=== PATIENT | male | born 1960 | race Caucasian/White ===

== ENCOUNTER 2016-04-09 07:08 | Emergency (ER) | payer OTHER ==
--- NOTE | 2016-04-09 08:21 | DIAGNOSTIC IMAGING REPORT ---
PROCEDURE: XR LUMBAR SPINE 2 OR 3 VIEWS INDICATION: Lower back pain, no known injury TECHNIQUE: Three views of the lumbar spine COMPARISON: 09/20/2013 FINDINGS: Five lumbar-type vertebral bodies are present. Normal vertebral body height without fracture. Subtle S-shaped scoliosis. Trace retrolisthesis L2-3. Mildly decreased disc height loss L2-3. The other disc spaces are fairly well maintained. Small degenerative end plate osteophytes L2-3, stable compared to the previous study. The visible osseous pelvis and bowel gas pattern are normal. Mild retained stool. IMPRESSION: 1. Intact lumbar spine. 2. Mild, stable chronic degenerative change at the L2-3 level.
--- NOTE | 2016-04-09 09:16 | ED CLINICAL REPORT ---
Clinical Report - Physicians/Mid Levels [facility] [address] [place] [address] 04/09/2016 7:11 Patient: LEANNE SIDDIQUI Time Seen: 07:42. Arrived- By private vehicle. Historian- patient. HISTORY OF PRESENT ILLNESS Chief Complaint: BACK PAIN. It is described as being moderate in degree and in the area of the right upper lumbar spine and right mid lumbar spine. The quality is noted to be aching and "pain". Quality not similar to prior episodes. No radiation. Onset- about 9 days ago and it is still present. It was abrupt in onset and has been constant and waxing/waning. No bladder dysfunction, bowel dysfunction or motor loss. Patient notes the possibility of an injury. Mechanism of injury- he was lifting (9 days ago he was lifting many heavy boxes). Similar symptoms previously: Diagnosis: sciatica and degenerative disc disease. ( he says that today's symptoms are different than his prior). REVIEW OF SYSTEMS No urgency, frequency or hesitancy of urination or urinary incontinence. No chills, fever, sweats, calf pain or chest pain. No cough, difficulty breathing, pedal edema, abdominal pain or constipation. No diarrhea, nausea, vomiting or painful urination. All systems otherwise negative, except as recorded above. PAST HISTORY PCP - Kimberly. SOCIAL HISTORY Current every day light tobacco smoker (cigarette)- less than 1/2 a pack per day. Regular alcohol use; consumes two beers a day. No drug use. FAMILY HISTORY No significant family medical history. ADDITIONAL NOTES The nursing notes have been reviewed. PHYSICAL EXAM Vital Signs: 04/09/2016 07:27 BP: 117/82. HR: 109. RR: 18. O2 saturation: 98%. Temp: 98.5 F. Have been reviewed. Appearance: Alert. Eyes: Pupils equal, round and reactive to light. ENT: Pharynx normal. Neck: Painless ROM. CVS: Heart sounds normal. Pulses normal. Respiratory: No respiratory distress. Breath sounds normal. Abdomen: No visible injury. Soft and nontender. Bowel sounds normal. No organomegaly. No mass. Back: Moderate muscle spasm of the left posterior back. Skin: Skin warm and dry. Normal skin color. Normal skin turgor. Extremities: Extremities exhibit normal ROM. Extremities nontender. No calf tenderness. Neuro: No motor deficit. No sensory deficit. LABS, X-RAYS, AND EKG LS-Spine X-rays: (IMPRESSION: 1. Intact lumbar spine. 2. Mild, stable chronic degenerative change at the L2-3 level.). The X-rays were interpreted by the radiologist and contemporaneously by me. Laboratory Tests: UA-Culture if indicated: (JADYN: 04/09/2016 08:30) ( MsgRcvd 04/09/2016 09:01) Final results Test Result Flag Units (Reference) URINE COLOR YELLOW URINE APPEARANCE CLEAR URINE GLUCOSE NEGATIVE (NEGATIVE) URINE BILIRUBIN NEGATIVE (NEGATIVE) URINE KETONE NEGATIVE (NEGATIVE) URINE SPECIFIC GRAVITY 1.020 (1.010-1.030) URINE PH 5.5 (5.0-8.0) URINE PROTEIN NEGATIVE (NEGATIVE) URINE UROBILINOGEN 0.2 EU/dL (0.2-1.0) URINE NITRITE NEGATIVE (NEGATIVE) URINE BLOOD NEGATIVE (NEGATIVE) URINE LEUK ESTERASE NEGATIVE (NEGATIVE) URINE RBC NONE SEEN rbc/hpf (0-1) URINE WBC NONE SEEN wbc/hpf (0-1) URINE EPITHELIAL CELLS 1-3 EPI/hpf (0-5) URINE BACTERIA NONE SEEN (NONE SEEN) URINE COMMENT CULT NOT INDICATED URINE CULTURES ARE SET-UP BASED ON THE FOLLOWING CRITERIA:POSITIVE NITRITEPOSITIVE LEUKOCYTE ESTERASEGREATER THAN 10 WHITE BLOOD CELLSMODERATE (2+) OR GREATER BACTERIA . PROGRESS AND PROCEDURES Course of Care: Patient is stable. Patient/family counseled. Old medical records reviewed. Disposition: Discharged. Condition: stable. CLINICAL IMPRESSION Muscle strain of the low back. 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 INSTRUCTIONS Apply ice for 20 minutes four times a day until better. Don't apply ice directly to skin and don't use while asleep. No driving or operating machinery while taking medication. No lifting greater than 5 lbs, no bending or stooping or no prolonged sitting until well. Warnings: GENERAL WARNINGS: Return or contact your physician immediately if your condition worsens or changes unexpectedly, if not improving as expected, or if other problems arise. Prescription Medications: Flexeril 10 mg: Take 1 orally every 8 hours as needed for muscle spasm. Dispense twenty (20). No refills. Substitution is permissible. OTC Medications: Motrin (available over the counter): take according to label instructions. Understanding of the discharge instructions verbalized by patient. Follow-up with: [facility], [facility], , [address] [place] [address] Follow up in five days if not better. (Electronically signed by Rk Best MD 04/12/2016 9:20)
--- NOTE | 2016-04-09 09:16 | ED NURSING NOTES ---
Clinical Report - Nurses [facility] [address] [place] [address] 04/09/2016 7:11 Patient: LEANNE SIDDIQUI TRIAGE Triage time 07:Apr 09 2016. Acuity: LEVEL 4. Chief Complaint: BACK PAIN. RENATO COMA SCORE: [place] Coma Scale: 15- eyes open spontaneously (4); best verbal response- oriented x 4 (5); best motor response- obeys commands (6). --07:32 Spencer Rizvi R.N. 07:26 04/09/16. BP: 117/82. HR: 109. RR: 18. O2 saturation: 98%. Temp: 98.5 F. Pain level now 5/10. --07:32 Spencer Rizvi R.N. Weight: 63.5 kg stated. Height/Length: 70 inches Per Patient. BMI: 20.1. --07:32 Spencer Rizvi R.N. Medications None. --07:30 Spencer Rizvi R.N. Allergies Tetanus Toxoids. --07:30 Spencer Rizvi R.N. History Arrived by private vehicle. Historian: patient. Accompanied by family. Primary physician (Kimberly). Onset. (around a weeks ago). He has had moderate trouble walking. The patient has been unable to walk. History of recent trauma- (Was lifting junk to go to the [place] [place]. Had to lift a Generator by himself.). Occurred at home. No numbness, weakness, tingling, fever or extremity pain. 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 SOCIAL HX: Light tobacco smoker (cigarette)- less than 1/2 a pack per day. Alcohol use; consumes two beers a day. No drug use. SELF HARM ASSESSMENT: A self harm assessment was performed. The patient answered "no" to the question "Have you recently felt down, depressed, or hopeless?" and "Do you have thoughts of harming or killing yourself?". FALL RISK ASSESSMENT: Fall risk assessment completed. No fall risk identified. NUTRITIONAL RISK ASSESSMENT: The nutritional risk assessment revealed no deficiencies. FUNCTIONAL ASSESSMENT: Functional assessment: no impairments noted. LEARNING NEEDS ASSESSMENT: The learning needs assessment revealed no barriers. ABUSE ASSESSMENT: Abuse assessment: (yes) The patient was asked "Do you feel safe in your home?". SKIN INTEGRITY ASSESSMENT: Skin integrity risk assessment completed. No skin integrity risk identified. --07:32 Spencer Rizvi R.N. PROBLEMS: Back Pain. Sciatica. Tetanus Status. Immunizations. --07:30 Spencer Rizvi R.N. ADDITIONAL SURGERIES: Tonsillectomy. --07:30 Spencer Rizvi R.N. Interventions ID and allergy band on patient. --07:32 Spencer Rizvi R.N. PHYSICAL ASSESSMENT Ambulatory to room. GENERAL / NEURO / PSYCH: Alert. Oriented X 4. Appears in no acute distress. RESPIRATORY: Respirations not labored. Chest nontender. Breath sounds within normal limits. CVS: Normal heart rate and rhythm. Capillary refill less than 2 seconds. GI / : Abdomen soft and nontender. Bowel sounds within normal limits. EXTREMITIES: Sensation intact in extremities. ROM of extremities within normal limits. BACK: ( Pain in lower back it started on left side now radiates entire lower back. Currently having pains that shoot into left side especially if he coughs.). --07:33 Spencer Rizvi R.N. NURSING PROGRESS NOTES Pulse oximeter and NIBP monitor placed on patient. Head of bed elevated (45). Reassurance given. Call light placed in reach. Side rails up x 1. Bed placed in lowest position. Brakes of bed on. --07:33 Spencer Rizvi R.N. 08:30. Patient ID band checked for patient name and birthdate urine collected with return of yellow-colored clear urine; odor is normal; sample sent to lab for urinalysis and culture. Specimen labeled in the presence of the patient. --08:44 [facility]. DISPOSITION / DISCHARGE Condition at departure: improved. No learning barriers present. Discharge instructions provided and reviewed with the patient. Reviewed warnings. Reviewed medication(s). Treatments reviewed. Reviewed referrals. Patient verbalized understanding. Written instructions provided in Chinese. The patient was discharged home and accompanied by level vial sealer. He left the Emergency Department ambulatory and via private vehicle. Bulker driving. --09:32 Spencer Rizvi R.N. 09:31 04/09/16. BP: 126/80. HR: 90. RR: 20. O2 saturation: 98%. Temp: 98.5 F. Pain level now 5/10. --:32 Spencer Rizvi R.N. Departure time: 09:32 Apr 09 2016. --:32 Spencer Rizvi R.N. Locked/Released at 04/09/2016 19:11 by Spencer Rizvi R.N.
--- NOTE | 2016-04-09 09:16 | ED CLINICAL REPORT ---
Clinical Report - Physicians/Mid Levels [facility] [address] [place] [address] 04/09/2016 7:11 Patient: LEANNE SIDDIQUI Time Seen: 07:42. Arrived- By private vehicle. Historian- patient. HISTORY OF PRESENT ILLNESS Chief Complaint: BACK PAIN. It is described as being moderate in degree and in the area of the right upper lumbar spine and right mid lumbar spine. The quality is noted to be aching and "pain". Quality not similar to prior episodes. No radiation. Onset- about 9 days ago and it is still present. It was abrupt in onset and has been constant and waxing/waning. No bladder dysfunction, bowel dysfunction or motor loss. Patient notes the possibility of an injury. Mechanism of injury- he was lifting (9 days ago he was lifting many heavy boxes). Similar symptoms previously: Diagnosis: sciatica and degenerative disc disease. ( he says that today's symptoms are different than his prior). REVIEW OF SYSTEMS No urgency, frequency or hesitancy of urination or urinary incontinence. No chills, fever, sweats, calf pain or chest pain. No cough, difficulty breathing, pedal edema, abdominal pain or constipation. No diarrhea, nausea, vomiting or painful urination. All systems otherwise negative, except as recorded above. PAST HISTORY PCP - Kimberly. SOCIAL HISTORY Current every day light tobacco smoker (cigarette)- less than 1/2 a pack per day. Regular alcohol use; consumes two beers a day. No drug use. FAMILY HISTORY No significant family medical history. ADDITIONAL NOTES The nursing notes have been reviewed. PHYSICAL EXAM Vital Signs: 04/09/2016 07:27 BP: 117/82. HR: 109. RR: 18. O2 saturation: 98%. Temp: 98.5 F. Have been reviewed. Appearance: Alert. Eyes: Pupils equal, round and reactive to light. ENT: Pharynx normal. Neck: Painless ROM. CVS: Heart sounds normal. Pulses normal. Respiratory: No respiratory distress. Breath sounds normal. Abdomen: No visible injury. Soft and nontender. Bowel sounds normal. No organomegaly. No mass. Back: Moderate muscle spasm of the left posterior back. Skin: Skin warm and dry. Normal skin color. Normal skin turgor. Extremities: Extremities exhibit normal ROM. Extremities nontender. No calf tenderness. Neuro: No motor deficit. No sensory deficit. LABS, X-RAYS, AND EKG LS-Spine X-rays: (IMPRESSION: 1. Intact lumbar spine. 2. Mild, stable chronic degenerative change at the L2-3 level.). The X-rays were interpreted by the radiologist and contemporaneously by me. Laboratory Tests: UA-Culture if indicated: (JADYN: 04/09/2016 08:30) ( MsgRcvd 04/09/2016 09:01) Final results Test Result Flag Units (Reference) URINE COLOR YELLOW URINE APPEARANCE CLEAR URINE GLUCOSE NEGATIVE (NEGATIVE) URINE BILIRUBIN NEGATIVE (NEGATIVE) URINE KETONE NEGATIVE (NEGATIVE) URINE SPECIFIC GRAVITY 1.020 (1.010-1.030) URINE PH 5.5 (5.0-8.0) URINE PROTEIN NEGATIVE (NEGATIVE) URINE UROBILINOGEN 0.2 EU/dL (0.2-1.0) URINE NITRITE NEGATIVE (NEGATIVE) URINE BLOOD NEGATIVE (NEGATIVE) URINE LEUK ESTERASE NEGATIVE (NEGATIVE) URINE RBC NONE SEEN rbc/hpf (0-1) URINE WBC NONE SEEN wbc/hpf (0-1) URINE EPITHELIAL CELLS 1-3 EPI/hpf (0-5) URINE BACTERIA NONE SEEN (NONE SEEN) URINE COMMENT CULT NOT INDICATED URINE CULTURES ARE SET-UP BASED ON THE FOLLOWING CRITERIA:POSITIVE NITRITEPOSITIVE LEUKOCYTE ESTERASEGREATER THAN 10 WHITE BLOOD CELLSMODERATE (2+) OR GREATER BACTERIA . PROGRESS AND PROCEDURES Course of Care: Patient is stable. Patient/family counseled. Old medical records reviewed. Disposition: Discharged. Condition: stable. CLINICAL IMPRESSION Muscle strain of the low back. 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 INSTRUCTIONS Apply ice for 20 minutes four times a day until better. Don't apply ice directly to skin and don't use while asleep. No driving or operating machinery while taking medication. No lifting greater than 5 lbs, no bending or stooping or no prolonged sitting until well. Warnings: GENERAL WARNINGS: Return or contact your physician immediately if your condition worsens or changes unexpectedly, if not improving as expected, or if other problems arise. Prescription Medications: Flexeril 10 mg: Take 1 orally every 8 hours as needed for muscle spasm. Dispense twenty (20). No refills. Substitution is permissible. OTC Medications: Motrin (available over the counter): take according to label instructions. Understanding of the discharge instructions verbalized by patient. Follow-up with: [facility], [facility], , [address] [place] [address] Follow up in five days if not better. (Electronically signed by Rk Best MD 04/12/2016 9:20)
--- NOTE | 2016-04-09 09:16 | ED NURSING NOTES ---
Clinical Report - Nurses [facility] [address] [place] [address] 04/09/2016 7:11 Patient: LEANNE SIDDIQUI TRIAGE Triage time 07:Apr 09 2016. Acuity: LEVEL 4. Chief Complaint: BACK PAIN. RENATO COMA SCORE: [place] Coma Scale: 15- eyes open spontaneously (4); best verbal response- oriented x 4 (5); best motor response- obeys commands (6). --07:32 Spencer Rizvi R.N. 07:26 04/09/16. BP: 117/82. HR: 109. RR: 18. O2 saturation: 98%. Temp: 98.5 F. Pain level now 5/10. --07:32 Spencer Rizvi R.N. Weight: 63.5 kg stated. Height/Length: 70 inches Per Patient. BMI: 20.1. --07:32 Spencer Rizvi R.N. Medications None. --07:30 Spencer Rizvi R.N. Allergies Tetanus Toxoids. --07:30 Spencer Rizvi R.N. History Arrived by private vehicle. Historian: patient. Accompanied by family. Primary physician (Kimberly). Onset. (around a weeks ago). He has had moderate trouble walking. The patient has been unable to walk. History of recent trauma- (Was lifting junk to go to the [place]. Had to lift a Generator by himself.). Occurred at home. No numbness, weakness, tingling, fever or extremity pain. 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 SOCIAL HX: Light tobacco smoker (cigarette)- less than 1/2 a pack per day. Alcohol use; consumes two beers a day. No drug use. SELF HARM ASSESSMENT: A self harm assessment was performed. The patient answered "no" to the question "Have you recently felt down, depressed, or hopeless?" and "Do you have thoughts of harming or killing yourself?". FALL RISK ASSESSMENT: Fall risk assessment completed. No fall risk identified. NUTRITIONAL RISK ASSESSMENT: The nutritional risk assessment revealed no deficiencies. FUNCTIONAL ASSESSMENT: Functional assessment: no impairments noted. LEARNING NEEDS ASSESSMENT: The learning needs assessment revealed no barriers. ABUSE ASSESSMENT: Abuse assessment: (yes) The patient was asked "Do you feel safe in your home?". SKIN INTEGRITY ASSESSMENT: Skin integrity risk assessment completed. No skin integrity risk identified. --07:32 Spencer Rizvi R.N. PROBLEMS: Back Pain. Sciatica. Tetanus Status. Immunizations. --07:30 Spencer Rizvi R.N. ADDITIONAL SURGERIES: Tonsillectomy. --07:30 Spencer Rizvi R.N. Interventions ID and allergy band on patient. --07:32 Spencer Rizvi R.N. PHYSICAL ASSESSMENT Ambulatory to room. GENERAL / NEURO / PSYCH: Alert. Oriented X 4. Appears in no acute distress. RESPIRATORY: Respirations not labored. Chest nontender. Breath sounds within normal limits. CVS: Normal heart rate and rhythm. Capillary refill less than 2 seconds. GI / : Abdomen soft and nontender. Bowel sounds within normal limits. EXTREMITIES: Sensation intact in extremities. ROM of extremities within normal limits. BACK: ( Pain in lower back it started on left side now radiates entire lower back. Currently having pains that shoot into left side especially if he coughs.). --07:33 Spencer Rizvi R.N. NURSING PROGRESS NOTES Pulse oximeter and NIBP monitor placed on patient. Head of bed elevated (45). Reassurance given. Call light placed in reach. Side rails up x 1. Bed placed in lowest position. Brakes of bed on. --07:33 Spencer Rizvi R.N. 08:30. Patient ID band checked for patient name and birthdate urine collected with return of yellow-colored clear urine; odor is normal; sample sent to lab for urinalysis and culture. Specimen labeled in the presence of the patient. --08:44 [facility]. DISPOSITION / DISCHARGE Condition at departure: improved. No learning barriers present. Discharge instructions provided and reviewed with the patient. Reviewed warnings. Reviewed medication(s). Treatments reviewed. Reviewed referrals. Patient verbalized understanding. Written instructions provided in Slovak. The patient was discharged home and accompanied by business lawyer. He left the Emergency Department ambulatory and via private vehicle. Children'[employer] Program Coordinator driving. --09:32 Spencer Rizvi R.N. 09:31 04/09/16. BP: 126/80. HR: 90. RR: 20. O2 saturation: 98%. Temp: 98.5 F. Pain level now 5/10. --:32 Spencer Rizvi R.N. Departure time: 09:32 Apr 09 2016. --:32 Spencer Rizvi R.N. Locked/Released at 04/09/2016 19:11 by Spencer Rizvi R.N.
--- NOTE | 2016-04-09 09:17 | ED ORDER SUMMARY ---
..... Patient: LEANNE SIDDIQUI OrderSheet [facility] VisitID: [id number] [address] [place] [address] 55y, M Registration Date/Time: 04/09/2016 ORDER SHEET Weight: 63.5 kg (stated) Allergies: Tetanus Toxoids GENERAL ORDERS: Lumbar Spine 2 or 3V (3 view ) Urgent (07:46 04/09/2016 LWhalen R.N. verbal order read back to Breanna BARRIOS) [facility] (8:40 LWhalen R.N.) UA-Culture if indicated Urgent (08:29 04/09/2016 Breanna BARRIOS) (8:40 LWhalen R.N.) MEDICATION ORDERS: IV FLUIDS: ORDER SHEET NOTES: [Electronically signed by Spencer Rizvi R.N. (19:11 04/09/2016)] [Electronically signed by Rk Best MD (09:20 04/12/2016)] [Electronically locked/signed by Spencer Rizvi R.N. (19:11 04/09/2016)]
--- NOTE | 2016-04-09 09:17 | ED ORDER SUMMARY ---
..... Patient: LEANNE SIDDIQUI OrderSheet [facility] VisitID: [id number] [address] [place] [address] 55y, M Registration Date/Time: 04/09/2016 ORDER SHEET Weight: 63.5 kg (stated) Allergies: Tetanus Toxoids GENERAL ORDERS: Lumbar Spine 2 or 3V (3 view ) Urgent (07:46 04/09/2016 LWhalen R.N. verbal order read back to Breanna BARRIOS) ([facility] 8[facility] (8:40 LWhalen R.N.) UA-Culture if indicated Urgent (08:29 04/09/2016 Breanna BARRIOS) (8:40 LWhalen R.N.) MEDICATION ORDERS: IV FLUIDS: ORDER SHEET NOTES: [Electronically signed by Spencer Rizvi R.N. (19:11 04/09/2016)] [Electronically signed by Rk Best MD (09:20 04/12/2016)] [Electronically locked/signed by Spencer Rizvi R.N. (19:11 04/09/2016)]
--- NOTE | 2016-04-12 09:21 | ED MED RECONCILIATION SUMMARY ---
Patient: LEANNE SIDDIQUI Medication Reconciliation Report [facility] VisitID: [id number] [address] [place] [address] 55y, M Registration Date/Time: 04/09/2016 Weight: 63.5 kg Height/Length: 70 in. BMI: 20.1 ALLERGIES: Tetanus Toxoids The patient's Home Medications are listed below: NONE. The source(s) of the original Home Medication information: Not obtained. The following Medications were given to the patient in the Emergency Department: None. The following Medications were prescribed to the patient: Motrin (available over the counter): take according to label instructions. -- Rk Best MD Flexeril 10 mg: Take 1 orally every 8 hours as needed for muscle spasm. Dispense twenty (20). No refills. Substitution is permissible. -- Rk Best MD
--- NOTE | 2016-04-12 09:21 | ED MAR SUMMARY ---
..... Medication Administration Record [facility] [address] [place], [place] [id number] Patient: CORI SIDDIQUIO Naheed Visit ID: [id number] 55y, M Weight: 63.5 kg Height/Length: 70 in BMI: 20.1 ALLERGIES: Tetanus Toxoids
--- NOTE | 2016-04-12 09:21 | ED MED RECONCILIATION SUMMARY ---
Patient: LEANNE SIDDIQUI Medication Reconciliation Report [facility] VisitID: [id number] [address] [place] [address] 55y, M Registration Date/Time: 04/09/2016 Weight: 63.5 kg Height/Length: 70 in. BMI: 20.1 ALLERGIES: Tetanus Toxoids The patient's Home Medications are listed below: NONE. The source(s) of the original Home Medication information: Not obtained. The following Medications were given to the patient in the Emergency Department: None. The following Medications were prescribed to the patient: Motrin (available over the counter): take according to label instructions. -- Rk Best MD Flexeril 10 mg: Take 1 orally every 8 hours as needed for muscle spasm. Dispense twenty (20). No refills. Substitution is permissible. -- Rk Best MD
--- NOTE | 2016-04-12 09:21 | ED DISCHARGE INSTRUCTIONS ---
Patient: LEANNE SIDDIQUI General Instructions [facility] VisitID: [id number] [place] [address] 55y, M Registration Date/Time: 04/09/2016 Muscle strain of the low back. 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 INSTRUCTIONS Apply ice for 20 minutes four times a day until better. Don't apply ice directly to skin and don't use while asleep. No driving or operating machinery while taking medication. No lifting greater than 5 lbs, no bending or stooping or no prolonged sitting until well. Warnings: GENERAL WARNINGS: Return or contact your physician immediately if your condition worsens or changes unexpectedly, if not improving as expected, or if other problems arise. Prescription Medications: Flexeril 10 mg: Take 1 orally every 8 hours as needed for muscle spasm. Dispense twenty (20). No refills. Substitution is permissible. OTC Medications: Motrin (available over the counter): take according to label instructions. Understanding of the discharge instructions verbalized by patient. Follow-up with: [facility], [facility], , [address] [place] [address] Follow up in five days if not better. ADDITIONAL INFORMATION Back Pain [Acute Or Chronic] Back pain is usually caused by an injury to the muscles or ligaments of the spine. Sometimes the disks that separate each bone in the spine may bulge and cause pain by pressing on a nearby nerve. Back pain may also appear after a sudden twisting/bending force (such as in a car accident), after a simple awkward movement, or lifting something heavy with poor body positioning. In either case, muscle spasm is often present and adds to the pain. Acute back pain usually gets better in one to two weeks. Back pain related to disk disease, arthritis in the spinal joints or spinal stenosis (narrowing of the spinal canal) can become chronic and last for months or years. Unless you had a physical injury (for example, a car accident or fall) X-rays are usually not ordered for the initial evaluation of back pain. If pain continues and does not respond to medical treatment, x-rays and other tests may be performed at a later time. Home Care: You may need to stay in bed the first few days. But, as soon as possible, begin sitting or walking to avoid problems with prolonged bed rest (muscle weakness, worsening back stiffness and pain, blood clots in the legs). When in bed, try to find a position of comfort. A firm mattress is best. Try lying flat on your back with pillows under your knees. You can also try lying on your side with your knees bent up towards your chest and a pillow between your knees. Avoid prolonged sitting. This puts more stress on the lower back than standing or walking. During the first two days after injury, apply an ICE PACK to the painful area for 20 minutes every 2-4 hours. This will reduce swelling and pain. HEAT (hot shower, hot bath or heating pad) works well for muscle spasm. You can start with ice, then switch to heat after two days. Some patients feel best alternating ice and heat treatments. Use the one method that feels the best to you. You may use acetaminophen (Tylenol) or ibuprofen (Motrin, Advil) to control pain, unless another pain medicine was prescribed. [NOTE: If you have chronic liver or kidney disease or ever had a stomach ulcer or GI bleeding, talk with your doctor before using these medicines.] Be aware of safe lifting methods and do not lift anything over 15 pounds until all the pain is gone. Follow Up with your doctor or this facility if your symptoms do not start to improve after one week. Physical therapy may be needed. [NOTE: If X-rays were taken, they will be reviewed by a radiologist. You will be notified of any new findings that may affect your care.] Get Prompt Medical Attention if any of the following occur: Pain becomes worse or spreads to your legs Weakness or numbness in one or both legs Loss of bowel or bladder control Numbness in the groin or genital area Back Pain [Acute Or Chronic] Back pain is usually caused by an injury to the muscles or ligaments of the spine. Sometimes the disks that separate each bone in the spine may bulge and cause pain by pressing on a nearby nerve. Back pain may also appear after a sudden twisting/bending force (such as in a car accident), after a simple awkward movement, or lifting something heavy with poor body positioning. In either case, muscle spasm is often present and adds to the pain. Acute back pain usually gets better in one to two weeks. Back pain related to disk disease, arthritis in the spinal joints or spinal stenosis (narrowing of the spinal canal) can become chronic and last for months or years. Unless you had a physical injury (for example, a car accident or fall) X-rays are usually not ordered for the initial evaluation of back pain. If pain continues and does not respond to medical treatment, x-rays and other tests may be performed at a later time. Home Care: You may need to stay in bed the first few days. But, as soon as possible, begin sitting or walking to avoid problems with prolonged bed rest (muscle weakness, worsening back stiffness and pain, blood clots in the legs). When in bed, try to find a position of comfort. A firm mattress is best. Try lying flat on your back with pillows under your knees. You can also try lying on your side with your knees bent up towards your chest and a pillow between your knees. Avoid prolonged sitting. This puts more stress on the lower back than standing or walking. During the first two days after injury, apply an ICE PACK to the painful area for 20 minutes every 2-4 hours. This will reduce swelling and pain. HEAT (hot shower, hot bath or heating pad) works well for muscle spasm. You can start with ice, then switch to heat after two days. Some patients feel best alternating ice and heat treatments. Use the one method that feels the best to you. You may use acetaminophen (Tylenol) or ibuprofen (Motrin, Advil) to control pain, unless another pain medicine was prescribed. [NOTE: If you have chronic liver or kidney disease or ever had a stomach ulcer or GI bleeding, talk with your doctor before using these medicines.] Be aware of safe lifting methods and do not lift anything over 15 pounds until all the pain is gone. Follow Up with your doctor or this facility if your symptoms do not start to improve after one week. Physical therapy may be needed. [NOTE: If X-rays were taken, they will be reviewed by a radiologist. You will be notified of any new findings that may affect your care.] Get Prompt Medical Attention if any of the following occur: Pain becomes worse or spreads to your legs Weakness or numbness in one or both legs Loss of bowel or bladder control Numbness in the groin or genital area Degenerative Disk Disease Spinal disks are gel-filled cushions between the bones of the spine (vertebrae). The disks act like shock absorbers. Over time, the disks may break down. This disorder is called degenerative disk disease (DDD). DDD can affect the neck or back. It is one of the most common causes of low back pain. It is the leading cause of disability in people under age 45 in the [place]. The pain usually remains localized to the lower back or neck. Muscle spasm is often present and adds to the pain. Disk degeneration is a natural part of aging, although it does not cause pain in most persons. It may also occur as a result of repeated minor injuries due to daily activities, sports, or accidents. It may lead to osteoarthritis of the spine. Back pain related to disk disease may come and go or become chronic and last for months or years. If the disk bulges or ruptures (also called slipped disk or herniated disk), it can put pressure on a nearby spinal nerve and cause neck or back pain that spreads down one arm or leg. X-rays or MRI (magnetic resonance imaging) scan may aid in the diagnosis. For acute pain, treatment consists of anti-inflammatory drugs, muscle relaxants, rest, ice, or heat. Narcotic pain medicines may be needed for short-term treatment of sudden worsening of pain. Due to their addictive potential, narcotics are not advised for long-term pain management. Other types of medicines are preferred. Surgery is usually not used to treat this condition unless there is a complication (such as nerve root compression). Home Care: FOR NECK PAIN: Use a comfortable pillow that supports the head and keeps the spine in a neutral position. The head should not be tilted forward or backward. FOR BACK PAIN: Avoid prolonged sitting. This puts more stress on the lower back than standing or walking. Establishing a regular exercise program to strengthen the supporting muscles of the spine will make it easier to live with DDD. During the first2 days after a flare-up of your pain, apply anice pack to the painful area for 20 minutes every 2-4 hours. This will reduce swelling and pain.Heat (hot shower, hot bath, or heating pad) works well for muscle spasm. You can start with ice, then switch to heat after2 days. Some patients feel best alternating ice and heat treatments. Use the method that feelsbest to you. You may use acetaminophen (Tylenol) or ibuprofen (Motrin, Advil) to control pain, unless another pain medicine was prescribed. [NOTE: If you have chronic liver or kidney disease or ever had a stomach ulcer or GI bleeding, talk with your doctor before using these medicines.] Follow Up with your physician, or as directed by our staff. [NOTE: If x-rays, a CT scan or an MRI scan were taken, they will be reviewed by a radiologist. You will be notified of any new findings that may affect your care.] Return Promptly or contact your doctor if any of the following occur: Increasing back pain New weakness, numbness, or pain in one or both arms or legs Foot drop (foot drags when you walk) Loss of bowel or bladder control Numbness or tingling in the buttock or groin area Unexplained fever over 100.4F (38.0C) Cyclobenzaprine Hydrochloride Oral tablet What is this medicine? CYCLOBENZAPRINE (sye tarikreyna CARA guerrero preen) is a muscle relaxer. It is used to treat muscle pain, spasms, and stiffness. How should I use this medicine? Take this medicine by mouth with a glass of water. Follow the directions on the prescription label. If this medicine upsets your stomach, take it with food or milk. Take your medicine at regular intervals. Do not take it more often than directed. Talk to your packaging tech regarding the use of this medicine in children. Special care may be needed. What side effects may I notice from receiving this medicine? Side effects that you should report to your doctor or health medicare contact specialist as soon as possible: allergic reactions like skin rash, itching or hives, swelling of the face, lips, or tongue chest pain fast heartbeat hallucinations seizures vomiting Side effects that usually do not require medical attention (report to your doctor or health medicare contact specialist if they continue or are bothersome): headache What may interact with this medicine? Do not take this medicine with any of the following medications: cisapride droperidol flecainide grepafloxacin halofantrine levomethadyl MAOIs like Carbex, Eldepryl, Marplan, Nardil, and Parnate nilotinib pimozide probucol sertindole This medicine may also interact with the following medications: abarelix alcohol contrast dyes dolasetron guanethidine medicines for cancer medicines for depression, anxiety, or psychotic disturbances medicines to treat an irregular heartbeat medicines used for sleep or numbness during surgery or procedure methadone octreotide ondansetron palonosetron phenothiazines like chlorpromazine, mesoridazine, prochlorperazine, thioridazine some medicines for infection like alfuzosin, chloroquine, clarithromycin, levofloxacin, mefloquine, pentamidine, troleandomycin tramadol vardenafil What if I miss a dose? If you miss a dose, take it as soon as you can. If it is almost time for your next dose, take only that dose. Do not take double or extra doses. Where should I keep my medicine? Keep out of the reach of children. Store at room temperature between 15 and 30 degrees C (59 and 86 degrees F). Keep container tightly closed. Throw away any unused medicine after the expiration date. What should I tell my health care provider before I take this medicine? They need to know if you have any of these conditions: heart disease, irregular heartbeat, or previous heart attack liver disease thyroid problem an unusual or allergic reaction to cyclobenzaprine, tricyclic antidepressants, lactose, other medicines, foods, dyes, or preservatives or trying to get breast-feeding What should I watch for while using this medicine? Check with your doctor or health medicare contact specialist if your condition does not improve within 1 to 3 weeks. You may get drowsy or dizzy when you first start taking the medicine or change doses. Do not drive, use machinery, or do anything that may be dangerous until you know how the medicine affects you. Stand or sit up slowly. Your mouth may get dry. Drinking water, chewing sugarless gum, or sucking on hard candy may help. Ibuprofen Oral tablet What is this medicine? IBUPROFEN (eye BYOO proe fen) is a non-steroidal anti-inflammatory drug (NSAID). It is used for dental pain, fever, headaches or migraines, osteoarthritis, rheumatoid arthritis, or painful monthly periods. It can also relieve minor aches and pains caused by a cold, flu, or sore throat. How should I use this medicine? Take this medicine by mouth with a glass of water. Follow the directions on the prescription label. Take this medicine with food if your stomach gets upset. Try to not lie down for at least 10 minutes after you take the medicine. Take your medicine at regular intervals. Do not take your medicine more often than directed. A special MedGuide will be given to you by the pharmacist with each prescription and refill. Be sure to read this information carefully each time. Talk to your packaging tech regarding the use of this medicine in children. Special care may be needed. What side effects may I notice from receiving this medicine? Side effects that you should report to your doctor or health medicare contact specialist as soon as possible: allergic reactions like skin rash, itching or hives, swelling of the face, lips, or tongue black or bloody stools, blood in the urine or in vomit breathing problems changes in vision chest pain general ill feeling or flu-like symptoms nausea or vomiting redness, blistering, peeling or loosening of the skin, including inside the mouth slurred speech or weakness on one side of the body stomach pain unexplained weight gain or swelling unusually weak or tired yellowing of eyes or skin Side effects that usually do not require medical attention (report to your doctor or health medicare contact specialist if they continue or are bothersome): constipation or diarrhea dizziness gas or heartburn stomach upset What may interact with this medicine? Do not take this medicine with any of the following medications: cidofovir ketorolac methotrexate pemetrexed This medicine may also interact with the following medications: alcohol aspirin diuretics lithium other drugs for inflammation like prednisone warfarin What if I miss a dose? If you miss a dose, take it as soon as you can. If it is almost time for your next dose, take only that dose. Do not take double or extra doses. Where should I keep my medicine? Keep out of the reach of children. Store at room temperature between 15 and 30 degrees C (59 and 86 degrees F). Keep container tightly closed. Throw away any unused medicine after the expiration date. What should I tell my health care provider before I take this medicine? They need to know if you have any of these conditions: asthma cigarette smoker drink more than 3 alcohol containing drinks a day heart disease or circulation problems such as heart failure or leg edema (fluid retention) high blood pressure kidney disease liver disease stomach bleeding or ulcers an unusual or allergic reaction to ibuprofen, aspirin, other NSAIDS, other medicines, foods, dyes, or preservatives or trying to get breast-feeding What should I watch for while using this medicine? Tell your doctor or healthcare professional if your symptoms do not start to get better or if they get worse. This medicine does not prevent heart attack or stroke. In fact, this medicine may increase the chance of a heart attack or stroke. The chance may increase with longer use of this medicine and in people who have heart disease. If you take aspirin to prevent heart attack or stroke, talk with your doctor or health medicare contact specialist. Do not take other medicines that contain aspirin, ibuprofen, or naproxen with this medicine. Side effects such as stomach upset, nausea, or ulcers may be more likely to occur. Many medicines available without a prescription should not be taken with this medicine. This medicine can cause ulcers and bleeding in the stomach and intestines at any time during treatment. Ulcers and bleeding can happen without warning symptoms and can cause . To reduce your risk, do not smoke cigarettes or drink alcohol while you are taking this medicine. You may get drowsy or dizzy. Do not drive, use machinery, or do anything that needs mental alertness until you know how this medicine affects you. Do not stand or sit up quickly, especially if you are an older patient. This reduces the risk of dizzy or fainting spells. This medicine can cause you to bleed more easily. Try to avoid damage to your teeth and gums when you brush or floss your teeth. You have been given the following additional information: Back Pain (Acute Or Chronic) Back Pain (Acute Or Chronic) Degenerative Disk Disease Cyclobenzaprine Hydrochloride Oral tablet Ibuprofen Oral tablet No driving or operating machinery while taking medication. No lifting greater than 5 lbs, no bending or stooping or no prolonged sitting until well. (Electronically signed by Rk Best MD 04/12/2016 9:20)
--- NOTE | 2016-04-12 09:21 | ED MAR SUMMARY ---
..... Medication Administration Record [facility] [address] [place], [place] [id number] Patient: CORI SIDDIQUIO Naheed Visit ID: [id number] 55y, M Weight: 63.5 kg Height/Length: 70 in BMI: 20.1 ALLERGIES: Tetanus Toxoids
== END 2016-04-09 09:25 | disposition home or self-care (01) ==
LOC: ED SRH 07:08
DX: S39.012A Strain of muscle, fascia and tendon of lower back, initial encounter (principal); M47.896 Other spondylosis, lumbar region; X50.0XXA Overexertion from strenuous movement or load, initial encounter; Y93.89 Activity, other specified; Y92.017 Garden or yard in single-family (private) house as the place of occurrence of the external cause; Y99.8 Other external cause status; F17.210 Nicotine dependence, cigarettes, uncomplicated; Z88.7 Allergy status to serum and vaccine
CPT/HCPCS: 90004